=== PATIENT | male | born 1985 | race Caucasian/White ===

== ENCOUNTER → 2024-07-19 | Outpatient (BNVA) | payer MEDICAID, SELFPAY | END | disposition home or self-care (01) | PROVIDERS: PCP Student in an Organized Health Care Education/Training Program; Referring Provider Student in an Organized Health Care Education/Training Program; Visit Provider Urology | DX: Z30.2 Encounter for sterilization (principal); N40.0 Benign prostatic hyperplasia without lower urinary tract symptoms | CPT/HCPCS: 81003; 99202; G0463 ==

== ENCOUNTER 2024-09-05 07:55 | Day surgery (SDC) | payer MEDICAID, SELFPAY ==
[2024-09-04 14:48] VITALS: BMI 25.8
--- NOTE | 2024-09-04 14:54 | SUR.PREOP ---
Instructions given over the phone, pt will come in at 0800 tomorrow.
[2024-09-05] VITALS (7 sets, daily range): BP systolic 109–140; BP diastolic 67–90; PULSE 75–90; RESP 12–17; TEMP 36.1–36.7; O2SAT 95–100; BMI 25.4
--- NOTE | 2024-09-05 11:12 | SUR.PHASEI ---
1112: Pt. wakes to name then drifts back to sleep, vitals stable, breathing unlabored, no complaint of pain or nausea, dressing to groin CDI, no active bleed noted, report received from Geronimo CLAUDIO and Ramos MAURO.
--- NOTE | 2024-09-05 11:18 | ESOP_ITS ---
Date of Procedure 09/05/24 Pre Op Diagnosis Elective sterilization Post Op Diagnosis Same Procedure Bilateral vasectomy Findings Bilateral breast no pathology Procedure Description Indication procedure this is a 39-year-old gentleman he is with children desired bilateral vasectomy procedure and complications were discussed with the patient in great detail informed consent is obtained he understood very well there is no warranty for permanent sterilization literature regarding bilateral vasectomy was provided to the patient Patient was brought to the operating room in a satisfactory condition after appropriate premedication was put on the operating table in a supine position he was appropriately identified by surgeon and operating room staff site scope and indications of the procedure were reconfirmed with the patient general anesthesia was given uneventfully parts were prepped and draped in a usual sterile fashion. Next the right vas deferens was palpated between 2 fingers and a thumb 2% lidocaine with quarter percent Marcaine was instilled appropriately vertical skin incision was made proper hemostasis was secured. Next the vas deferens was brought into the incision it was from its various fascial coverings between 2 silver clips centimeter of the vas deferens was excised. The lumen of the vas deferens was diathermized with coagulation diathermy distal end of the vas deferens was buried between various fascial layers. Skin was approximated with 3-0 chromic. Similar procedure was repeated on the opposite side. Next this sterile dressings were applied. Pressure bandage was given Patient having tolerated the procedure well and was sent to recovery room in a satisfactory condition to be discharged home with full postoperative instructions were verbally as well as in writing to be followed in urology office in 6 weeks' time. Pathology / specimen None Estimated Blood Loss 0.2 Condition Stable Disposition PACU Surgeon Ana Paulson MD Surgical Staff Operation Date: 09/05/24 10:00 Case Staff HOUSEKEEPING ASSOCIATE: Skinny Askew
[2024-09-05] MEDS: METOCLOPRAMIDE INJ 5 MG/ML VIAL 2 ML 10 MG IVP (11:23)
[2024-09-05] MEDS: ONDANSETRON INJ 2 MG/ML INJ 2 ML 4 MG IV (11:36)
--- NOTE | 2024-09-05 12:05 | SUR.PHASEII ---
1205: Pt. AAOx4, vitals stable, breathing unlabored, no complaint of pain or nausea, dressing to groin CDI, no active bleed noted, pt. tolerated sips of water well, pt. ambulated to wheelchair with steady gait and no assist, no complications. Gave discharge instructions to the pt. and his ride, both verbalized understanding and had no further questions. Pt. left with all personal belongings.
== END 2024-09-05 12:05 | disposition home or self-care (01) ==
PROVIDERS: PCP Family Medicine; Referring Provider Urology; Visit Provider Urology
PROC: (CPT 55250; principal; 2024-09-05 09:45)
DX: Z30.2 Encounter for sterilization (principal)
CPT/HCPCS: 55250; A4217; A4649; J0131; J1885; J2250; J2405; J2704; J2765; J3010; J3490